=== PATIENT | female | born 1955 | race Caucasian/White ===

== ENCOUNTER 2017-09-18 19:15 | Emergency (ER) ==
[2017-09-18 19:20] VITALS: BP 168/103; TEMP 96.2; BMI 30.4
[2017-09-18] MEDS ORDERED: TORADOL IM STA (19:38)
--- NOTE | 2017-09-18 19:41 | ED.PDOC ---
General ED Provider: Dr. JALEN LOWRY Chief Complaint: Burn Stated Complaint: Burn injury to the right hand at work, when she was opening the steam door, dorsum of the rt hand fingers effected, with some redness Time Seen by Physician: 20:02 Mode of Arrival: Walk-In Information Source: Patient Primary Care Provider: JALEN LOWRY-[facility] Nursing and Triage Documentation Reviewed and Agree: Yes Skin Complaint Exam - Burn Injury Complaint/Exam Initial Severity: Mild Current Severity: Moderate Location: RUE (dorsum of the hand.) Character: Scald (steam injury) Aggravating: Reports: Unknown (movements) Alleviating: Reports: None Associated Signs and Symptoms: Denies: Short of air, Cough, Chest pain, Vision abnormality, LOC/Duration, Additional trauma Skin: Wet Singed Facial Hair: No Singed Nasal Hair: No Stridor Present: No Respiratory Distress Present: No Circumferential Involvement to Trunk: No Circumferential Involvement to Extremity: No Entrance Wound Present: No Burn Location (Adult): Right Arm (Front) (rt hand fingers, dorsum) Estimated Burned Body Surface Area: 4.5 Weight: 200 lb Weight (Calculated Kilograms): [id number] Initial Fluid Requirement First 8 Hours: [id number] Total Fluid Requirement First 24 Hours: [id number] Differential Diagnoses: Contact Thermal Burn Review of Systems - Review Of Systems Constitutional: Reports: No symptoms Eyes: Reports: No symptoms Ears, Nose, Mouth, Throat: Reports: No symptoms Respiratory: Reports: No symptoms Cardiac: Reports: No symptoms GI: Reports: No symptoms : Reports: No symptoms Musculoskeletal: Reports: No symptoms Skin: Reports: No symptoms Neurological: Reports: No symptoms Endocrine: Reports: No symptoms Hematologic/Lymphatic: Reports: No symptoms All Other Systems: Reviewed and Negative Past Medical History - Past Medical History Previously Healthy: No Endocrine: Reports: None Cardiovascular: Reports: Hypertension Respiratory: Reports: None Hematological: Reports: None Gastrointestinal: Reports: None Genitourinary: Reports: None Neuro/Psych: Reports: None Musculoskeletal: Reports: Arthritis Cancer: Reports: Unknown, Other (CERVICAL CANCER) Last Menstrual Period: none - Surgical History General Surgical History: Reports: Hysterectomy, Tubal ligation - Family History Family History: Reports: None - Social History Smoking Status: Current every day smoker, Light tobacco smoker Smoking Cessation Counseling Time: > 3 min - 10 min Hx Substance Use: No Alcohol Screening: None Physical Exam - Physical Exam Appearance: Well-appearing, No pain distress, Well-nourished Eyes: BLANCHE, EOMI, Conjunctiva clear ENT: Ears normal, Nose normal, Oropharynx normal Respiratory: Airway patent, Breath sounds clear, Breath sounds equal, Respirations nonlabored Cardiovascular: RRR, Pulses normal, No rub, No murmur GI/: Soft, Nontender, No masses, Bowel sounds normal, No Organomegaly Musculoskeletal: Normal strength, ROM intact, No edema, No calf tenderness Skin: Warm, Dry, Normal color Neurological: Sensation intact, Motor intact, Reflexes intact, Cranial nerves intact, Alert, Oriented Psychiatric: Affect appropriate, Mood appropriate Critical Care Note - Critical Care Note Total Time (mins): 30 Course - Course Orders, Labs, Meds: Orders Category Date Time Status Ketorolac Tromethamine [Toradol] MEDS 09/18/17 19:38 Discontinued 30 mg IM ONCE STA Medications Discontinued Medications Generic Name Dose Route Start Last Admin Trade Name Bobbyq PRN Reason Stop Dose Admin Ketorolac Tromethamine 30 mg 09/18/17 19:38 Toradol IM 09/18/17 19:39 ONCE STA Vital Signs: Temp Pulse Resp BP Pulse Ox 09/18/17 19:16 96.2 F L 92 H 18 168/103 H 93 L Departure - Departure Time of Disposition: 20:01 Disposition: HOME SELF-CARE Discharge Problem: Burn Instructions: Superficial Burn (ED) Condition: Good Pt referred to PMD for follow-up: Yes Additional Instructions: keep hand elevated Tylenol prn F/u with [facility] IN 2 DAYS KEEP bp CHECKING Prescriptions: Hydrocodone/Acetaminophen [[employer] 5-325 Tablet] 1 tab PO TID PRN #12 tablet PRN Reason: PAIN Allergies/Adverse Reactions: Allergies sulfamethoxazole [From Bactrim] Adverse Reaction (Mild, Verified 09/18/17 19:20) Itching trimethoprim [From Bactrim] Adverse Reaction (Mild, Verified 09/18/17 19:20) Itching naproxen sodium [From Aleve] Adverse Reaction (Verified 09/18/17 19:20) Itching Penicillins Adverse Reaction (Verified 09/18/17 19:20) Anaphylaxis Home Medications: Ambulatory Orders Gabapentin 300 mg PO BEDTIME 04/11/16 Hydrocodone/Acetaminophen [[employer] 5-325 Tablet] 1 tab PO TID PRN #12 tablet 09/18 Disposition Discussed With: Patient, Family
[2017-09-18] MEDS ORDERED: SILVADENE CREAM TP STA (19:59)
== END 2017-09-18 20:32 | disposition home or self-care (01) ==
LOC: ED 19:15
DX: T23.161A Burn of first degree of back of right hand, initial encounter (principal); T23.121A Burn of first degree of single right finger (nail) except thumb, initial encounter; T22.10XA Burn of first degree of shoulder and upper limb, except wrist and hand, unspecified site, initial encounter; T31.0 Burns involving less than 10% of body surface; X13.1XXA Other contact with steam and other hot vapors, initial encounter; Y99.0 Civilian activity done for income or pay; F17.210 Nicotine dependence, cigarettes, uncomplicated; R03.0 Elevated blood-pressure reading, without diagnosis of hypertension
CPT/HCPCS: 96372; 99282

== ENCOUNTER 2017-09-27 08:14 | Outpatient (CLI) ==
[2017-09-27 08:41] LABS: BASOPHILS % (AUTO) 0.3 % (0.0-3.0); EOSINOPHILS # (AUTO) 0.2 K/ul (0.0-0.7); EOSINOPHILS % (AUTO) 1.9 % (0.0-7.0); HEMATOCRIT 40.1 % (37.0-47.0); HEMOGLOBIN 13.7 g/dl (12.0-16.0); IMMATURE GRANULOCYTE % (AUTO) 0.5 % (0.0-5.0); LYMPHOCYTES # (AUTO) 2.6 K/uL (0.60-3.4); LYMPHOCYTES % (AUTO) 29.3 (10.0-50.0); MEAN CORPUSCULAR HEMOGLOBIN 29.2 pg (27.0-31.0); MEAN CORPUSCULAR HGB CONC 34.2 (31.8-35.4); MEAN CORPUSCULAR VOLUME 85.5 fl (81.0-99.0); MONOCYTES # (AUTO) 0.6 K/uL (0.4-2.0); MONOCYTES % (AUTO) 6.8 (0-10); NEUTROPHILS # (AUTO) 5.4 K/ul (2.0-6.9); NEUTROPHILS % (AUTO) 61.2; PLATELET COUNT 236 10^3/uL (140-440); RED BLOOD COUNT 4.69 10^6/ul (4.20-5.40); WHITE BLOOD COUNT 8.76 K/ul (4.6-10.2)
[2017-09-27 09:16] LABS: ALBUMIN 3.5 g/dL (3.4-5.0); ALBUMIN/GLOBULIN RATIO 0.88; ANION GAP 14.2; BILIRUBIN,TOTAL 0.57 mg/dL (0.00-1.20); BUN/CREATININE RATIO 24.65; CALCIUM 9.7 mg/dL (8.2-10.2); CHOL/HDL RATIO 4.1 (4.5-5.5); CREATININE 0.73 mg/dL (0.60-1.30); POTASSIUM 4.2 mmol/L (3.5-5.10); TOTAL PROTEIN 7.5 g/dL (6.4-8.2)
== END 2017-09-27 08:15 | disposition home or self-care (01) ==
LOC: LAB 08:14
PROVIDERS: ATTEND Emergency Medicine
DX: E11.65 Type 2 diabetes mellitus with hyperglycemia (principal); I10 Essential (primary) hypertension; E78.5 Hyperlipidemia, unspecified
CPT/HCPCS: 36415; 80053; 80061; 83036; 84443; 85025

== ENCOUNTER 2017-12-06 20:05 | Emergency (ER) ==
[2017-12-06 20:08] VITALS: BP 132/82; TEMP 97; BMI 31.1
--- NOTE | 2017-12-06 20:14 | ED.PDOC ---
General ED Provider: Dr. SUREKHA AGUERO-ER Chief Complaint: Respiratory Complaint Stated Complaint: travis been coughing up yellow stuff --im not sob or coughing up blood Time Seen by Physician: 20:12 Mode of Arrival: Walk-In Information Source: Patient Exam Limitations: No limitations Primary Care Provider: JALEN LOWRY-[facility] Nursing and Triage Documentation Reviewed and Agree: Yes Reviewed sepsis parameters & appropriate labs ordered?: Yes System Inflammatory Response Syndrome: Not Applicable Sepsis Protocol: For patient's 13 years and over: Temp is 96.8 and below OR 101 and greater Pulse >90 BPM Resp >20/minute Acutely Altered Mental Status Are patient's symptoms suggestive of a new infection, such as: -Pneumonia -Skin, Soft Tissue -Endocarditis -UTI -Bone, Joint Infection -Implantable Device -Acute Abdominal Infection -Wound Infection -Meningitis -Blood Stream Catheter Infection -Unknown Respiratory Complaint Exam - Respiratory Complaint/Exam Onset/Duration: 3 days Symptoms Are: Still present Timing: Constant Initial Severity: Mild Current Severity: Mild Location: Chest Character: Reports: Productive cough Aggravating: Reports: URI, Passive smoke exposure Alleviating: Reports: None Associated Signs and Symptoms: Reports: URI, Nasal congestion. Denies: Rapid breathing, Dyspnea, Fever, Chills, Chest pain, Pleuritic chest pain, Wheezing, Hemoptysis, Dizziness, Calf pain, Calf swelling, Edema, Hoarseness, Sinus discomfort, Vomiting, Sore throat, Weight loss, Increased thirst, Increased appetite, Increased urination History of Healthcare-Acquired Pneumonia: No Home Oxygen Use: No Recent Stress Test: No Recent Echo/LV Function: No Current Antibiotic Use: No Current Asthma Medication Use: No Respiratory Distress: None Inadequate Respiratory Effort: No Dysphagia Present: No Stridor Present: No JVD Present: No Diminished Breath Sounds: No Sinus Tenderness: None Grunting Respirations: No Kussmaul Respirations: No Differential Diagnoses: Bronchitis Review of Systems - Review Of Systems Constitutional: Reports: No symptoms Eyes: Reports: No symptoms Ears, Nose, Mouth, Throat: Reports: No symptoms Respiratory: Reports: Cough Cardiac: Reports: No symptoms GI: Reports: No symptoms : Reports: No symptoms Musculoskeletal: Reports: No symptoms Skin: Reports: No symptoms Neurological: Reports: No symptoms Endocrine: Reports: No symptoms Hematologic/Lymphatic: Reports: No symptoms All Other Systems: Reviewed and Negative Past Medical History - Past Medical History Previously Healthy: No Endocrine: Reports: None Cardiovascular: Reports: Hypertension Respiratory: Reports: None Hematological: Reports: None Gastrointestinal: Reports: None Genitourinary: Reports: None Neuro/Psych: Reports: None Musculoskeletal: Reports: Arthritis Cancer: Reports: Unknown, Other (CERVICAL CANCER) Last Menstrual Period: HYSTERECTOMY - Surgical History General Surgical History: Reports: Hysterectomy, Tubal ligation - Family History Family History: Reports: None - Social History Smoking Status: Current every day smoker, Light tobacco smoker Hx Substance Use: No Alcohol Screening: None - Immunizations Tetanus Shot up to Date: No Physical Exam - Physical Exam Appearance: Well-appearing, No pain distress, Well-nourished Eyes: BLANCHE, EOMI, Conjunctiva clear ENT: Ears normal, Nose normal, Oropharynx normal Neck: Supple Respiratory: Rhonchi Cardiovascular: RRR, Pulses normal, No rub, No murmur GI/: Soft, Nontender, No masses, Bowel sounds normal, No Organomegaly Musculoskeletal: Normal strength, ROM intact, No edema, No calf tenderness Skin: Warm, Dry, Normal color Neurological: Sensation intact, Motor intact, Reflexes intact, Cranial nerves intact, Alert, Oriented Psychiatric: Affect appropriate, Mood appropriate Critical Care Note - Critical Care Note Total Time (mins): 0 Course - Course Vital Signs: Temp Pulse Resp BP Pulse Ox 12/06/17 20:06 97.0 F L 97 H 20 132/82 92 L Departure - Departure Time of Disposition: 20:14 Disposition: HOME SELF-CARE Discharge Problem: Bronchitis, Tobacco abuse Instructions: Acute Bronchitis (ED), Cigarette Smoking and Your Health (GEN), How to Stop Smoking (ED), Lung Cancer Screening (GEN) Condition: Good Pt referred to PMD for follow-up: Yes IPMP verified?: No Additional Instructions: biaxin 500mg bid x 10 days--medrol dose pack--ask the discharge nurse about techniques to stop smoking---f/u with pcp if not improving Allergies/Adverse Reactions: Allergies sulfamethoxazole [From Bactrim] Adverse Reaction (Mild, Verified 12/06/17 20:08) Itching trimethoprim [From Bactrim] Adverse Reaction (Mild, Verified 12/06/17 20:08) Itching naproxen sodium [From Aleve] Adverse Reaction (Verified 12/06/17 20:08) Itching Penicillins Adverse Reaction (Verified 12/06/17 20:08) Anaphylaxis Home Medications: Ambulatory Orders Gabapentin 300 mg PO BEDTIME 04/11/16 Ranitidine HCl [Zantac] 150 mg PO BID 10/04/17 Disposition Discussed With: Patient
== END 2017-12-06 20:15 | disposition home or self-care (01) ==
LOC: ED 20:05
DX: J20.9 Acute bronchitis, unspecified (principal); F17.210 Nicotine dependence, cigarettes, uncomplicated
CPT/HCPCS: 99282